=== PATIENT | male | born 1975 | race Caucasian/White ===

== ENCOUNTER 2017-04-02 06:36 | Emergency (ER) | payer OTHER ==
--- NOTE | ~2017-04-02 | CR252 ---
[facility]. [facility] A Service of [facility] RADIOLOGY TEXT RESULTS PATIENT: COLIN ENGLISH LOCATION: SED : 75 UNIT #: [id number] AGE: [address]: Joe Mccall MD SEX: M ORDER DR: [id number] [place] [id number] E MR#: [id number] Acc #: [id number] NAME: COLIN ENGLISH : 1975 SEX: M STUDY DATE/TIME: 04/02/2017 7:15 UNIT: SED ROOM: STUDY DESCRIPTION: CR Tibia and Fibula 2 Views Lt Attending Physician: Joe Mccall M.D. Ordering Physician: Joe Mccall M.D. Primary Care Physician: Gatito Vance M.D. MEDICAL IMAGING REPORT This report is preliminary unless electronic signature is present. EXAM Tibia-fibula left 04/02/2017 HISTORY Dropped heavy piece of metal on leg. Pain, redness, swelling. 2 weeks duration. TECHNIQUE AP, lateral, oblique radiographs of the left hip and fibula are presented. FINDINGS No acute traumatic fracture or malalignment. Prior open reduction internal fixation distal left fibula with lateral fixation plate and multiple fixation screws. Orthopedic hardware intact with no evidence of failure or loosening. Prior fracture plane no longer visible. Ankle mortise joint intact. Plantar calcaneal spur. Soft tissue swelling distal pretibial soft tissues extending into the anterior ankle soft tissues. More localized area of soft tissue swelling in the pretibial region measuring approximately 7.3 cm in length x approximately 2.1 cm in thickness without soft tissue defect, subcutaneous air or radiodense foreign body. The soft tissue swelling is nonspecific in appearance and in the appropriate clinical context could reflect evolving contusion/hematoma. Soft tissue infection not excluded on basis of these images. Correlate with exam. Clinical followup recommended. There is a suggestion of varicose veins along the medial aspect of the foreleg. Dictated by... Edgar Patel M.D. THIS IS AN ELECTRONICALLY VERIFIED REPORT [facility] A Service of [facility] RADIOLOGY TEXT RESULTS PATIENT: COLIN ENGLISH LOCATION: [facility] [place] : 75 UNIT #: [id number] AGE: [address]: Joe Mccall MD SEX: M ORDER DR: Edgar Patel M.D. at 04/02/2017 5:50 PM SANJAY/svetlana TD: 04/02/2017 15:10 JOB #: [id number] MEDICAL IMAGING REPORT Page 1 of 1
[~2017-04-02 06:36] MED LIST: NO MEDICATIONS; PERCOCET5/325 PO
== END 2017-04-02 08:11 | disposition home or self-care (01) ==
LOC: SED 06:36
DX: S80.12XA Contusion of left lower leg, initial encounter (principal); L03.116 Cellulitis of left lower limb; W22.8XXA Striking against or struck by other objects, initial encounter; Y92.69 Other specified industrial and construction area as the place of occurrence of the external cause; Y99.0 Civilian activity done for income or pay
CPT/HCPCS: 29580; 73590; 99283